=== PATIENT | male | born 1935 | race Caucasian/White ===

== ENCOUNTER 2021-07-29 10:34 | Emergency (ER) | payer OTHER ==
--- NOTE | 2021-07-29 12:33 | RAD REPORT ---
EXAM DESCRIPTION: RAD - Forearm Right - 07/29/2021 12:22 pm CLINICAL HISTORY: PAIN COMPARISON: No comparisons FINDINGS: Distal radial fracture involving the radial styloid with intra-articular extension. Alignm ent is near anatomic. Well corticated fragment along the dorsal aspect of the carpus may represent an age-indeterminate triquetrum fracture. Ulnar styloid not well visualized on this view. Degenerative changes are present at the base of the thumb. IMPRESSION: Radial styloid fracture with intra-articular extension. Age-indeterminate triquetrum fra cture.
--- NOTE | 2021-07-29 12:40 | EDPHYS ---
Physician Documentation [facility] Name: Jesus Manuel Mercado Age: 86 yrs Sex: Male : 1935 Arrival Date: 07/29/2021 Time: 10:34 Bed 15 Private MD: ED Physician Sylvester Khan HPI: 07/29 11:40 This 86 yrs old Male presents to ER via Ambulatory with complaints of Arm kb Injury. 11:40 The patient or guardian complains of decreased range of motion, injury, pain, swelling, kb tenderness. The complaints affect the right wrist. Context: The problem was sustained at home, resulted from a fall, on an outstretched hand. Onset: The symptoms/episode began/occurred just prior to arrival. Treatment prior to arrival includes: no previous treatment. Modifying factors: The symptoms are alleviated by nothing. the symptoms are aggravated by nothing. Associated signs and symptoms: Pertinent positives: decreased range of motion, pain, swelling. Severity of symptoms: At their worst the symptoms were mild, moderate, in the emergency department the symptoms are unchanged. The patient has not experienced similar symptoms in the past. The patient has not recently seen a physician. Pt reports he slipped on a wet floor and fell onto outstretched right hand. Historical: - Allergies: 11:29 Demerol; iw - Immunization history:: Client reports receiving the 2nd dose of the Covid vaccine. - Social history:: Smoking status: Patient denies any tobacco usage or history of. ROS: 11:39 Constitutional: Negative for fever, chills, and weight loss. kb 11:39 MS/extremity: Positive for injury or acute deformity, decreased range of motion, pain, swelling, tenderness, of the right wrist. 11:39 All other systems are negative. Exam: 11:39 Constitutional: This is a well developed, well nourished patient who is awake, alert, kb and in no acute distress. Head/Face: Normocephalic, atraumatic. ENT: Moist Mucous membranes Respiratory: Respirations even and unlabored. No increased work of breathing, no retractions or nasal flaring. Skin: Warm, dry with normal turgor. Normal color. Neuro: Awake and alert, GCS 15, oriented to person, place, time, and situation. Moves all extremities. Normal gait. Psych: Awake, alert, with orientation to person, place and time. Behavior, mood, and affect are within normal limits. 11:39 Musculoskeletal/extremity: Extremities: grossly normal except: noted in the right wrist: decreased ROM, pain, swelling, tenderness, ROM: limited active range of motion due to pain, in the right wrist, Circulation is intact in all extremities. Sensation intact. Vital Signs: 11:29 BP 126 / 54; Pulse 62; Resp 16; Temp 98.0; Pulse Ox 96% on R/A; Weight 90.72 kg; Height iw 5 ft. 8 in. (172.72 cm); 14:01 BP 118 / 62; Pulse 76; Resp 20; Pulse Ox 100% on R/A; kh1 11:29 Body Mass Index 30.41 (90.72 kg, 172.72 cm) iw MDM: 11:31 Patient medically screened. kb 11:40 Data reviewed: vital signs, nurses notes. Data interpreted: Pulse oximetry: on room air kb is 96 %. Interpretation: normal. 12:38 Counseling: I had a detailed discussion with the patient and/or guardian regarding: the kb historical points, exam findings, and any diagnostic results supporting the discharge/admit diagnosis, radiology results, the need for outpatient follow up, a orthopedic surgeon, to return to the emergency department if symptoms worsen or persist or if there are any questions or concerns that arise at home. 07/29 11:36 Order name: Forearm Right XRAY; Complete Time: 12:34 kb 07/29 12:38 Order name: Sugar Tong Forearm Splint; Complete Time: 13:46 kb 07/29 12:38 Order name: Sling; Complete Time: 13:46 kb Administered Medications: 13:05 Drug: traMADol 50 mg Route: PO; kh1 Disposition: 15:21 Co-signature as Attending Physician, Sylvester Khan MD I agree with the assessment and rn plan of care. Attestation: The patient's history, exam findings, diagnostics, and a summary of any interventions or procedures was reviewed in detail with Jessica ALBERT. Disposition Summary: 07/29/21 12:39 Discharge Ordered Location: Home Condition: Stable kb Diagnosis - Radial syloid fracture - right kb Followup: kb - With: Emergency Department - When: As needed - Reason: Worsening of condition Followup: kb - With: Private Physician - When: 2 - 3 days - Reason: Recheck today's complaints, Continuance of care, Re-evaluation by your physician Discharge Instructions: - Discharge Summary Sheet kb - Wrist Fracture Treated With Immobilization, [id number] kb Forms: - Medication Reconciliation Form kb - Thank You Letter kb - Antibiotic Education kb - Prescription Opioid Use kb Prescriptions: - Diclofenac Sodium 75 mg Oral tablet,delayed release (DR/EC) - take 1 tablet by ORAL route 2 times per day As needed; 30 tablet; Refills: 0, kb Product Selection Permitted Signatures: Dispatcher [employer] EDJessica Page, SHLAINI-C [employer]ATOR-Elsie Malin, Sylvester Nguyen RN, MD MD rn Harris, Kecia [facility]
--- NOTE | 2021-07-29 12:40 | ER ---
Nurse's Notes [facility] Name: Jesus Manuel Mercado Age: 86 yrs Sex: Male : 1935 Arrival Date: 07/29/2021 Time: 10:34 Bed 15 Private MD: Diagnosis: Radial syloid fracture - right Presentation: 07/29 11:28 Chief complaint: Patient states: fell this morning while trying to get an umbrella put iw up, tried to catch himself, pain and swelling to right wrist. Coronavirus screen: At this time, the client does not indicate any symptoms associated with coronavirus-19. Ebola Screen: Patient negative for fever greater than or equal to 101.5 degrees Fahrenheit, and additional compatible Ebola Virus Disease symptoms Patient denies exposure to infectious person. Patient denies travel to an Ebola-affected area in the 21 days before illness onset. No symptoms or risks identified at this time. Initial Sepsis Screen: Does the patient meet any 2 criteria? No. Patient's initial sepsis screen is negative. Does the patient have a suspected source of infection? No. Patient's initial sepsis screen is negative. Risk Assessment: Do you want to hurt yourself or someone else? Patient reports no desire to harm self or others. Onset of symptoms was July 29, 2021. 11:28 Method Of Arrival: Ambulatory iw 11:28 Acuity: ANGIE 4 iw Triage Assessment: 13:13 General: Appears in no apparent distress. Behavior is calm, cooperative. Pain:. kh1 Musculoskeletal: Reports pain in right hand and right arm. Injury Description: Deformity. Historical: - Allergies: 11:29 Demerol; iw - Immunization history:: Client reports receiving the 2nd dose of the Covid vaccine. - Social history:: Smoking status: Patient denies any tobacco usage or history of. Screenin:14 Abuse screen: Denies threats or abuse. Nutritional screening: No deficits noted. kh1 Tuberculosis screening: No symptoms or risk factors identified. Fall Risk Fall in past 12 months (25 points). Gait- Weak (10 pts.). Assessment: 13:14 Neuro: No deficits noted. Cardiovascular: No deficits noted. Respiratory: No deficits kh1 noted. GI: No deficits noted. : No deficits noted. Musculoskeletal: right arm swelling and deformity. 13:59 Reassessment: Patient appears in no apparent distress at this time. No changes from kh1 previously documented assessment. Patient and/or family updated on plan of care and expected duration. Pain level reassessed. Patient is alert, oriented x 3, equal unlabored respirations, skin warm/dry/pink. Patient states feeling better. Vital Signs: 11:29 BP 126 / 54; Pulse 62; Resp 16; Temp 98.0; Pulse Ox 96% on R/A; Weight 90.72 kg; Height iw 5 ft. 8 in. (172.72 cm); 14:01 BP 118 / 62; Pulse 76; Resp 20; Pulse Ox 100% on R/A; kh1 11:29 Body Mass Index 30.41 (90.72 kg, 172.72 cm) iw ED Course: 10:34 Patient arrived in ED. as 11:29 Triage completed. iw 11:29 Arm band placed on. iw 11:31 Jessica Cifuentes FNP-C is PHCP. kb 11:31 Sylvester Khan MD is Attending Physician. kb 11:39 Sherry Hammer is Primary Nurse. kh1 12:22 Forearm Right XRAY In Process Unspecified. EDMS 13:16 Patient has correct armband on for positive identification. Bed in low position. Call counts include 234 beds at the [facility] light in reach. Side rails up X2. 13:16 No provider procedures requiring assistance completed. Inserted Accessed Patient did counts include 234 beds at the [facility] not have IV access during this emergency room visit. 13:46 Orthoglass splint: Sugar tong splint applied on right arm. Sling applied to right arm. em1 Administered Medications: 13:05 Drug: traMADol 50 mg Route: PO; counts include 234 beds at the [facility] Outcome: 12:39 Discharge ordered by . kb 14:00 Discharged to home via wheelchair. kh1 14:00 Condition: improved 14:00 Discharge instructions given to patient, Instructed on discharge instructions, follow up and referral plans. medication usage, Demonstrated understanding of instructions, follow-up care, splint care, Prescriptions given X 1. 14:02 Patient left the ED. counts include 234 beds at the [facility] Signatures: Dispatcher [employer] EDMS Jessica Cifuentes FNP-C FNP-Ckb Martinez, Amelia as Williams, Irene, RN RN iw Vishnu Alfonso em1 Sherry Hammer counts include 234 beds at the [facility]
[2021-07-29] MEDS ORDERED: TRAMADOL HCL 50 MG TAB ONE (13:17)
[2021-07-29 14:33] VITALS: TEMP 98
[2021-07-29 14:34] VITALS: BP 118/62; O2SAT 100
== END 2021-07-29 14:02 | disposition home or self-care (01) ==
LOC: ER 10:34
PROC: 2W3CX1Z Immobilization of Right Lower Arm using Splint (ICD-10-PCS; principal; 2021-07-29)
DX: S52.511A Displaced fracture of right radial styloid process, initial encounter for closed fracture (principal); W01.0XXA Fall on same level from slipping, tripping and stumbling without subsequent striking against object, initial encounter; Y92.009 Unspecified place in unspecified non-institutional (private) residence as the place of occurrence of the external cause; Z88.5 Allergy status to narcotic agent
CPT/HCPCS: 99284